=== PATIENT | female | born 1975 | race Two or more races ===

== ENCOUNTER 2018-08-22 11:15 | Outpatient (CLI) | payer OTHER ==
[~2018-08-22 11:15] MED LIST: AMOX1TAB12 PO; KETO10TA2 PO; MUPIROCIN22 GM TOP
== END 2018-08-22 17:00 | disposition home or self-care (01) ==
LOC: MAMO-SONO 11:15
DX: Z12.31 Encounter for screening mammogram for malignant neoplasm of breast (principal); N64.4 Mastodynia